=== PATIENT | female | born 1950 | race Caucasian/White ===

== ENCOUNTER 2018-08-06 10:48 | Emergency (ER) | payer OTHER ==
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
[2018-08-06 11:22] VITALS: BP 162/84; PULSE 67; RESP 16; TEMP 98.3; O2SAT 98
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
== END 2018-08-06 12:23 | disposition home or self-care (01) ==
LOC: C.ER 10:48
DX: S82.892D Other fracture of left lower leg, subsequent encounter for closed fracture with routine healing (principal); V03.90XD Pedestrian on foot injured in collision with car, pick-up truck or van, unspecified whether traffic or nontraffic accident, subsequent encounter

== ENCOUNTER 2018-10-16 21:23 | Emergency (ER) | payer OTHER ==
[2018-10-16] MEDS ORDERED: Sodium Chloride 0.9% 1,000 ML IV ONE (21:52)
--- NOTE | 2018-10-16 21:52 | C.PDOC ---
History Of Present Illness 68 year old female presents to the ED c/o abdominal pain associated with nausea, vomit and decreased PO intake that started yesterday. Patient denies fever, chills, diarrhea, back pain, dysuria, hematuria, recent travel, sick contacts. Time Seen by Provider: 10/16/18 21:50 Chief Complaint (Nursing): Abdominal Pain History Per: Patient History/Exam Limitations: no limitations Onset/Duration Of Symptoms: Days (1) Current Symptoms Are (Timing): Still Present Location Of Pain/Discomfort: Diffuse Quality Of Discomfort: "Pain" Associated Symptoms: Nausea, Vomiting, Loss Of Appetite. denies: Diarrhea, Urin dilip Symptoms Recent travel outside of the [place]: No Additional History Per: Patient Abnormal Vaginal Bleeding: No Past Medical History Reviewed: Historical Data, Nursing Documentation, Vital Signs Vital Signs: Last Vital Signs Temp 97.5 F L 10/16/18 21:29 Pulse 70 10/16/18 21:29 Resp 16 10/16/18 21:29 BP 152/77 H 10/16/18 21:29 Pulse Ox 96 10/16/18 21:29 - Medical History PMH: Hepatitis Surgical History: No Surg Hx Family History: States: Unknown Family Hx - Social History Hx Tobacco Use: No Hx Alcohol Use: No Hx Substance Use: No - Immunization History Hx Tetanus Toxoid Vaccination: No Hx Influenza Vaccination: No Hx Pneumococcal Vaccination: No Review Of Systems Constitutional: Negative for: Fever, Chills Cardiovascular: Negative for: Chest Pain Respiratory: Negative for: Shortness of Breath Gastrointestinal: Positive for: Nausea, Vomiting, Abdominal Pain. Negative for: Diarrhea Genitourinary: Negative for: Dysuria, Hematuria Musculoskeletal: Negative for: Back Pain Neurological: Negative for: Weakness, Numbness Physical Exam - Physical Exam Appears: Non-toxic, No Acute Distress Skin: Warm, Dry Head: Normacephalic Eye(s): bilateral: Normal Inspection Oral Mucosa: Dry Neck: Supple Chest: Symmetrical Cardiovascular: Rhythm Regular Respiratory: No Rales, No Rhonchi, No Wheezing Gastrointestinal/Abdominal: Soft, Tenderness (diffuse), Distention, No Guarding, No Rebound, Other (tympanic to percussion) Back: No CVA Tenderness Extremity: Bilateral: Atraumatic, Normal Color And Temperature, Normal ROM Neurological/Psych: Oriented x3, Normal Speech, Normal Cognition Gait: Steady ED Course And Treatment - Laboratory Results Result Diagrams: 10/16/18 21:58 10/16/18 21:58 ECG: Interpreted By Me, Viewed By Me ECG Rhythm: Sinus Rhythm (63), Nonspecific Changes O2 Sat by Pulse Oximetry: 96 (On RA) Pulse Ox Interpretation: Normal - CT Scan/US Ct abd/pelvis Other Rad Studies (CT/US): Read By Radiologist, Radiology Report Reviewed CT/US Interpretation: CT SCAN OF THE ABDOMEN AND PELVIS WITH CONTRAST. CLINICAL HISTORY: Diffuse abdominal pain. TECHNIQUE: Multiple axial and coronal CT images were obtained through the abdomen and pelvis after administration of intravenous contrast material. COMMENTS: Small sliding hiatal hernia. Mild diffuse thickening of the bladder. 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 Mild changes of central mesenteric panniculitis. Mildly prominent central mesenteric lymph nodes, probably minimal mesenteric adenitis. There is an appendicolith without acute appendicitis. The liver is of uniform attenuation without mass or defect. There is no intra or extrahepatic biliary ductal dilatation. The spleen is normal. The gallbladder is within normal limits. The pancreas is of normal contour and attenuation becki cteristics. There is no evidence of adrenal mass. Both kidneys demonstrate prompt and equal nephrograms. The kidneys are normal in size, shape and configuration. There is no evidence of renal or ureteral mass. No renal or ureteral calculi are identified. There is no hydroureter or hydronephrosis. No evidence for appendicitis. There is no bowel wall thickening. No evidence for small or large bowel obstruction. There is no evidence of abdominal ascites or lymphadenopathy. There is no evidence of intrinsic or extrinsic bladder mass. There is no pelvic ascites or lymphadenopathy. Images of the lung bases show no evidence of pleural or parenchymal mass. There are no pleural effusions. The bon y structures are free of lytic or blastic lesions. IMPRESSION: Small sliding hiatal hernia. Mild diffuse thickening of the bladder. Probably mild cystitis. 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 Mild changes of central mesenteric panniculitis. Mildly prominent central mesenteric lymph nodes, probably minimal mesenteric adenitis. There is an appendicolith without acute appendicitis. . Electronically signed on Oct 17, 2018 1:03:14 AM EST by: Ramila Chao M.D., Certified by ABR, MSK, Neuroradiology Progress Note: Plan: - Labs. - Protonix 40 mg IVP. - IV fluids. - Zofran 4 mg IVP. - UA Medical Decision Making Medical Decision Making: Upon provider reevaluation patient is feeling better, is medically stable, and requires no further treatment in the ED at this time. Patient will be discharged home with Rx for bentyl, zofran . Counseling was provided and all questions we re answered regarding diagnosis and need for follow up with the referred clinic. There is agreement to discharge plan. Return if symptoms persist or worsen. Disposition Counseled Patient/Family Regarding: Studies Performed, Diagnosis, Need For Foll owup, Rx Given - Disposition Referrals: [facility] [Outside] [facility] [Outside] Disposition: HOME/ ROUTINE Disposition Time: 21:51 Condition: FAIR Additional Instructions: Please return if symptoms recur Prescriptions: Dicyclomine [Dicyclomine HCl] 10 mg PO TID #15 cap Ondansetron ODT [Zofran ODT] 4 mg PO TID PRN #10 odt PRN Reason: Nausea/Vomiting Instructions: Acute Abdomen (Belly Pain), Adult (DC), Nausea and Vomiting, Adult Forms: [employer] (Cook Islander) - Clinical Impression Clinical Impression: Abdominal pain, Nausea - Scribe Statement The provider has reviewed the documentation as recorded by the Scribe Reji Prieto All medical record entries made by the Scribe were at my direction and personally dictated by me. I have reviewed the chart and agree that the record accurately reflects my personal performance of the history, physical exam, medical decision making, and the department course for this patient. I have also personally directed, reviewed, and agree with the discharge instructions and disposition.
[2018-10-16] MEDS ORDERED: Sodium Chloride 0.9% 1,000 ML ONE (21:58)
[2018-10-16 22:01] LABS: BASO # 0.1 K/uL (0.0-0.2); BASO % 1.1 % (0.0-2.0); EOS # 0.2 K/uL (0.0-0.7); EOS % 2.8 % (0.0-4.0); HEMOGLOBIN 12.3 g/dL (11.0-16.0); LYMPH % 47.3 % (20.0-40.0); MEAN CELL VOLUME 83.6 fL (81.0-99.0); MEAN CORPUSCULAR HGB CONC 33.5 g/dL (33.0-37.0); MEAN PLATELET VOLUME 8.4 fL (7.2-11.7); MONO # 0.7 K/uL (0.0-0.8); MONO % 10.5 % (0.0-10.0); NEUT # 2.5 K/uL (1.8-7.0); NEUT % 38.3 % (50.0-75.0); NRBC % 0.1 % (0.0-2.0); RBC 4.39 Mil/uL (3.80-5.20); RED CELL DISTRIBUTION WIDTH 13.7 % (11.5-14.5); WHITE BLOOD COUNT 6.4 K/uL (4.8-10.8)
[2018-10-16 22:12] LABS: ALB/GLOB RATIO 1.4 (1.0-2.1); ALBUMIN 4.3 g/dL (3.5-5.0); ALT/SGPT 51 U/L (9-52); AST/SGOT 37 U/L (14-36); BLOOD UREA NITROGEN 14 mg/dL (7-17); CALCIUM 9.1 mg/dl (8.6-10.4); GFR NON-AFRICAN AMERICAN > 60; LIPASE 62 U/L (23-300)
[2018-10-16 23:08] LABS: SQUAMOUS EPITHIAL 11 /hpf (0-5)
[2018-10-16 23:09] LABS: URINE BILIRUBIN NEGATIVE (NEGATIVE); URINE BLOOD NEGATIVE (NEGATIVE); URINE CLARITY CLEAR (Clear); URINE COLOR YELLOW (YELLOW); URINE GLUCOSE (UA) NEGATIVE (Normal); URINE LEUKOCYTE ESTERASE NEGATIVE Leu/uL (Negative); URINE PROTEIN NEGATIVE (NEGATIVE); URINE UROBILINOGEN 0.2 mg/dL (0.2-1.0)
[2018-10-16] MEDS ORDERED: Iohexol 300 100 ML IJ ONE (23:43)
[2018-10-17 00:31] VITALS: TEMP 98.2
[2018-10-17 02:01] VITALS: BP 173/76; PULSE 68; RESP 15
[2018-10-17 02:24] VITALS: O2SAT 96
--- NOTE | 2018-10-17 11:09 | CT ---
Date of service: 10/17/2018 PROCEDURE: CT Abdomen and Pelvis with contrast HISTORY: diffuse abd pain COMPARISON: None available. TECHNIQUE: Contrast dose: 100 mL Omnipaque 350 IV Radiation dose: Total exam DLP = 375.65 mGy-cm. This CT exam was performed using one or more of the following dose reduction techniques: Automated exposure control, adjustment of the mA and/or kV according to patient size, and/or use of iterative reconstruction technique. FINDINGS: LOWER THORAX: 5 mm subpleural right lower lobe nodule (series 5, image 26). No visible consolidation, pleural effusion, or pneumothorax. LIVER: Hypoattenuation of the liver compatible with hepatic steatosis. GALLBLADDER AND BILE DUCTS: Contracted gallbladder limits evaluation. PANCREAS: Unremarkable. SPLEEN: Unremarkable. ADRENALS: Unremarkable. KIDNEYS AND URETERS: The kidneys enhance symmetrically. No hydronephrosis or obstructing calculus identified. VASCULATURE: No aortic aneurysm. No atherosclerotic calcification or mural plaque present. BOWEL: Stomach is nondistended. Lack of oral contrast limits evaluation for bowel pathology. Bowel loops appear within normal limits of caliber without evidence of obstruction. APPENDIX: The appendix appears within normal limits of caliber. Appendicolith. No secondary signs of acute appendicitis. PERITONEUM: No significant free fluid. No definite free air. LYMPH NODES: Sub cm mesenteric lymph nodes, nonspecific. BLADDER: Mildly thick-walled urinary bladder may be exaggerated by under distension. REPRODUCTIVE: Uterus is present. Question mild pelvic congestion syndrome. BONES: Bilateral L5 spondylolysis. OTHER FINDINGS: None. IMPRESSION: 5 mm subpleural right lower lobe nodule. If the patient is high risk, recommend CT follow-up at 12 months. Mildly thick-walled urinary bladder may be exaggerated by under distension. Correlate clinically. Additional findings as above. Preliminary impression was provided by [employer]. Study marked for PA review.
== END 2018-10-17 02:34 | disposition home or self-care (01) ==
LOC: C.ER 21:23
DX: R10.9 Unspecified abdominal pain (principal); R11.0 Nausea
CPT/HCPCS: 74177; 80053; 81001; 83690; 85025; 93005; 96374; 96375; 99285; C9113; J2405; J7030; Q9967